=== PATIENT | female | born 1970 | race Caucasian/White ===

== ENCOUNTER → 2019-07-23 | Outpatient (CLI) | payer BC ==
[~2019-07-23] MED LIST: DOXY100C2 PO
[2019-07-23 12:05] LABS: BASO % 1 % (0-3); EOS % 1 % (0-3); HEMATOCRIT 46.2 % (36.0-47.0); HEMOGLOBIN 15.3 g/dL (12.0-15.5); LYMPH # 1.8 x10^3/uL (1.0-4.8); LYMPH % 39 % (24-48); MEAN CORPUSCULAR HEMOGLOBIN 30 pg (25-35); MEAN CORPUSCULAR HGB CONC 33 g/dL (31-37); MEAN CORPUSCULAR VOLUME 89 fL (79-100); MONO # 0.4 x10^3/uL (0.0-1.1); MONO % 9 % (0-9); NEUT # 2.4 x10^3/uL (1.8-7.7); NEUT % 51 % (31-73); PLATELET COUNT 177 x10^3/uL (140-400); RED BLOOD COUNT 5.19 x10^6/uL (3.50-5.40); WHITE BLOOD COUNT 4.8 x10^3/uL (4.0-11.0)
[2019-07-23 12:19] LABS: BARBITURATES NEG (NEG); BENZODIAZEPINES NEG (NEG); CANNABINOIDS POS (NEG); COCAINE NEG (NEG); METHADONE NEG (NEG); OPIATES NEG (NEG); PHENCYCLIDINE NEG (NEG)
[2019-07-23 12:20] LABS: AMPHETAMINE/METHAMPHETAMINE NEG (NEG)
[2019-07-23 12:37] LABS: ALBUMIN 4.4 g/dL (3.4-5.0); ALBUMIN/GLOBULIN RATIO 1.2 (1.0-1.7); CALCIUM 9.5 mg/dL (8.5-10.1); CREATININE 1.1 mg/dL (0.6-1.0); GFR 52.8; POTASSIUM 5.1 mmol/L (3.5-5.1); TOTAL BILIRUBIN 0.5 mg/dL (0.2-1.0); TOTAL PROTEIN 8.2 g/dL (6.4-8.2)
== END | disposition home or self-care (01) ==
LOC: LAB 11:45
PROVIDERS: ATTEND Psychiatry & Neurology Neurology
DX: G56.02 Carpal tunnel syndrome, left upper limb (principal); R20.2 Paresthesia of skin
CPT/HCPCS: 36415; 80053; 80307; 82607; 84443; 85025

== ENCOUNTER 2019-08-31 15:22 | Emergency (ER) | payer BC ==
[~2019-08-31] VITALS: Ht 170.2 cm; Wt 56.2 kg
[2019-08-31 16:04] VITALS: BP 137/67
--- NOTE | 2019-08-31 16:39 | PHYS DOC ---
Past Medical History Past Medical History: Anxiety, Depression Past Surgical History: Tubal ligation Alcohol Use: Occasionally Drug Use: None Adult General Chief Complaint Chief Complaint: RIB PAIN HPI HPI Patient is a 49 year old female who presents with right-sided lower rib pain and cough when lying down has been ongoing for 2 days. The patient states her pain is 10 out of 10 in severity and sharp. She denies any respiratory history. Review of Systems Review of Systems Constitutional: Denies fever or chills [] Eyes: Denies change in visual acuity, redness, or eye pain [] HENT: Denies nasal congestion or sore throat [] Respiratory: Reports cough and shortness of breath. Reports R sided rib pain. Cardiovascular: No additional information not addressed in HPI [] GI: Denies abdominal pain, nausea, vomiting, bloody stools or diarrhea [] : Denies dysuria or hematuria [] Musculoskeletal: Denies back pain or joint pain [] Integument: Denies rash or skin lesions [] Neurologic: Denies headache, focal weakness or sensory changes [] Endocrine: Denies polyuria or polydipsia [] Complete systems were reviewed and found to be within normal limits, except as documented in this note. Current Medications Current Medications Current Medications Medications (Trade) Dose Ordered Sig/Clarence Start Time Stop Time Status Last Admin Dose Admin Albuterol/ Ipratropium (Duoneb) 3 ml 1X ONCE 08/31/19 17:15 08/31/19 17:16 Dexamethasone (Decadron) 10 mg 1X STAT 08/31/19 17:10 08/31/19 17:11 DC 08/31/19 17:13 10 MG Allergies Allergies Allergies Coded Allergies Type Severity Reaction Last Updated Verified Penicillins Allergy Severe throat swelling 08/31/19 Yes Physical Exam Physical Exam Constitutional: Well developed, well nourished, no acute distress, non-toxic appearance. [] HENT: Normocephalic, atraumatic, bilateral external ears normal, oropharynx moist, no oral exudates, nose normal. [] Eyes: PERRLA, EOMI, conjunctiva normal, no discharge. [] Neck: Normal range of motion, no tenderness, supple, no stridor. [] Cardiovascular:Heart rate regular rhythm, no murmur [] Lungs & Thorax: Bilateral breath sounds clear to auscultation have scattered wheezes diffusely. Abdomen: Bowel sounds normal, soft, no tenderness, no masses, no pulsatile masses. [] Skin: Warm, dry, no erythema, no rash. [] Back: No tenderness, no CVA tenderness. [] Extremities: No tenderness, no cyanosis, no clubbing, ROM intact, no edema. [] Neurologic: Alert and oriented X 3, normal motor function, normal sensory function, no focal deficits noted. [] Psychologic: Affect normal, judgement normal, mood normal. [] Current Patient Data Vital Signs Vital Signs Date Time Temp Pulse Resp B/P (MAP) Pulse Ox O2 Delivery O2 Flow Rate FiO2 08/31/19 16:04 98.6 80 18 137/67 (90) 98 Room Air 98.6 EKG EKG [] Radiology/Procedures Radiology/Procedures [][facility] [address] [place] [address] IMAGING REPORT Signed PATIENT: KANIKA MCCRACKEN ACCOUNT: [id number] : 1970 LOCATION: ER AGE: 49 SEX: F EXAM STATUS: REG ER ORD. PHYSICIAN: KALI MCWILLIAMS APRN REASON: cough, R rib pain PROCEDURE: RIBS RIGHT AND PA CHEST RIBS RIGHT AND PA CHEST History: Cough, right rib pain.. Comparison: None FINDINGS: The heart size is not enlarged. No evidence of pneumothorax. Abnormal opacity in the right lung base and to lesser extent left lung base, compatible with infiltrate or pneumonia. Small right pleural effusion. No evidence of displaced right rib fracture. Note that a specific location of focal tenderness is not indicated. IMPRESSION: 1. Infiltrate or consolidation in right lung base with small right pleural effusion. Could represent pneumonia. Milder infiltrate in left lung base. 2. No evidence of displaced right rib fracture. Electronically signed by: Kali Cat MD (08/31/2019 5:08 PM) [facility] DICTATED and SIGNED BY: KALI CAT MD DATE: 08/31/19 2692 Course & Med Decision Making Course & Med Decision Making Pertinent Labs and Imaging studies reviewed. (See chart for details) Will get chest x-ray with ribs. Will give Decadron and Breathing treatment. IMPRESSION: 1. Infiltrate or consolidation in right lung base with small right pleural effusion. Could represent pneumonia. Milder infiltrate in left lung base. 2. No evidence of displaced right rib fracture. Electronically signed by: Kali Cat MD (08/31/2019 5:08 PM) [facility] Will treat with Doxycycline. Vitals in ER has been stable. Will send patient home. Dragon Disclaimer Dragon Disclaimer This electronic medical record was generated, in whole or in part, using a voice recognition dictation system. Departure Departure Impression: Primary Impression: Pneumonia Disposition: 01 HOME, SELF-CARE Condition: STABLE Referrals: PARAG WYNN MD (PCP) Patient Instructions: Pneumonia, Adult Additional Instructions: Thank you for visiting [facility]. We appreciate you trusting us with your care. If any additional problems come up don't hesitate to return to visit us. Please follow up with your primary care provider so they can plan additional care if needed and know about the problem that you had. If symptoms worsen come back to the Emergency Department. Any concerning symptoms that start such as chest pain, shortness of air, weakness or numbness on one side of the body, running high fevers or any other concerning symptoms return to the ER. Please fill your medications at any pharmacy and follow the prescription instructions. Scripts Doxycycline Hyclate (DOXYCYCLINE HYCLATE) 100 Mg Capsule 1 CAP PO BID for 7 Days, #14 CAP Prov: KALI MCWILLIAMS APRN 08/31/19 Problem Qualifiers Primary Impression: Pneumonia Pneumonia type: due to unspecified organism Laterality: right Lung location: lower lobe of lung Qualified Codes: J18.9 - Pneumonia, unspecified organism KALI MCWILLIAMS APRN Aug 31, 2019 16:39
[2019-08-31] MEDS ORDERED: DEXAMETHASONE 4 MG TABLET PO STA (17:10)
--- NOTE | 2019-08-31 17:11 | RAD ---
RIBS RIGHT AND PA CHEST History: Cough, right rib pain.. Comparison: None FINDINGS: The heart size is not enlarged. No evidence of pneumothorax. Abnormal opacity in the right lung base and to lesser extent left lung base, compatible with infiltrate or pneumonia. Small right pleural effusion. No evidence of displaced right rib fracture. Note that a specific location of focal tenderness is not indicated. IMPRESSION: 1. Infiltrate or consolidation in right lung base with small right pleural effusion. Could represent pneumonia. Milder infiltrate in left lung base. 2. No evidence of displaced right rib fracture. Electronically signed by: Kali Cat MD (08/31/2019 5:08 PM) [facility]
[2019-08-31] MEDS ORDERED: IPRATRPIUM/ALBUTEROL 0.5/2.5MG 3 ML NEBU. NEB ONE (17:15)
[2019-08-31] MEDS ORDERED: DOXY100C2 PO (17:16)
== END 2019-08-31 17:22 | disposition home or self-care (01) ==
LOC: ER 15:22
DX: J18.9 Pneumonia, unspecified organism (principal); F41.9 Anxiety disorder, unspecified; F32.9 Major depressive disorder, single episode, unspecified; Z88.0 Allergy status to penicillin
CPT/HCPCS: 71101; 94640; 99284; J8540

== ENCOUNTER → 2022-03-01 | Outpatient (CLI) | payer BC ==
[~2022-03-01] MED LIST changes: +BUPIVACAINE MPF 0.5% 10 ML VIAL. IJ ONE; -DOXY100C2 PO; +DOXY100C3 PO; +IOHEXOL 180 MG/ML 10 ML VIAL. ONE; +LIDOCAINE 1% PF 5 ML VIAL. INJ ONE; +TRIAMCINOLONE PRES.FREE 40 MG/ML VIAL. INT ART ONE
--- NOTE | 2022-03-01 14:18 | RAD ---
IR ARTHROCENT INT JT ASP/INJ LT History: Pain Technique: Patient was informed of the risks to include pain, infection, bleeding, allergic reaction. All questions were answered. Patient signed a written consent form for left hip injection for pain therapy. Patient was placed in supine position on the fluoroscopy table. The external skin site overl dilcia left hip was prepped and draped in the usual sterile fashion. Betadine was utilized for cleansin g solution. 1% lidocaine was utilized for local anesthesia to the depth of the bone. 22-gauge spinal needle was advanced under fluoroscopy to depth of the bone. Small amount air was injected confirming intra-articular location. Mixture of 4 cc anesthetic and 80 mg Depo-Medrol were injected during fluor oscopic visualization. Needle was removed. There were no immediate complications. Bandage was applied . Fluoroscopy time 0.6 minutes Fluoroscopic images: 2 Impression: 1. Successful left hip steroid injection. Electronically signed by: Juan R Marie DO (03/01/2022 2:15 PM) [id number]
== END | disposition home or self-care (01) ==
LOC: RAD 09:20
PROVIDERS: ATTEND Orthopaedic Surgery Sports Medicine
DX: M16.12 Unilateral primary osteoarthritis, left hip (principal); Z79.899 Other long term (current) drug therapy; Z88.0 Allergy status to penicillin; Z72.89 Other problems related to lifestyle
CPT/HCPCS: 20610; 77002; J3301; J3490